=== PATIENT | female | born 1970 | race African-American/Black ===

== ENCOUNTER 2022-04-03 10:01 | Outpatient (CLI) | payer OTHER, SELFPAY ==
--- NOTE | ~2022-04-03 | XR_ITS ---
XR hand BI arthritis min 3V DATE: 04/03/2022 11:31 INDICATION: Osteoarthritis TECHNIQUE: 4 views of each hand COMPARISON: None FINDINGS: No fracture or dislocation, periosteal reaction or bone destruction, erosive change or lakia drocalcinosis of either hand is detected. Joint spaces are preserved. IMPRESSION: No significant abnormality Reviewed, dictated and finalized at location B. ZINE EDITOR IMPRESSION: No significant abnormality
--- NOTE | ~2022-04-03 | XR_ITS ---
XR foot LT standing 2V DATE: 04/03/2022 11:30 INDICATION: Osteoarthritis TECHNIQUE: Standing AP and lateral views COMPARISON: None FINDINGS: There is a lag screw extending posteroanteriorly in the calcaneus. There is hallux valgus and bunion deformity. There is severe osteoarthritis and prominent periarticular spurring at the first metatarsophalangeal joint. No erosive change is noted. Mild plantar calcaneal enthesopathy. Slight posterior calcaneal enthesopathy. Benign-appearing cystic or postoperative changes of medial aspect of navicular bone. Pes planus. 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 [employer]
--- NOTE | ~2022-04-03 | XR_ITS ---
XR lumbar spine 2-3V DATE: 04/03/2022 11:31 INDICATION: Back pain TECHNIQUE: AP, lateral, coned lateral lumbosacral views COMPARISON: None FINDINGS: Normal alignment of the lumbar spine with the exception of grade 1 anterolisthesis at L4-5 due to degenerative change at the apophyseal joints. There is moderate degenerative disc disease in the lower thoracic spine at L1-2 and L4-5. Mild degenerative disease at L2-3. Moderately severe degenerative disease at L5-S1. The T12-L5 pedicles are intact. No fracture or bone destruction is detected. The sacral iliac joints are intact. Right hip arthroplasty. Status post cholecystectomy. Radiopaque sutures overlie the left upper quadrant of the abdomen. IMPRESSION: Multilevel degenerative disc disease, most prominent at L5-S1 Degenerative change at the facet joints with associated grade 1 anterolisthesis at L4-5 Right hip arthroplasty Status post cholecystectomy Postoperative change, left upper quadrant Reviewed, dictated and finalized at location B. [employer] AFFAIRS DIRECTOR
--- NOTE | ~2022-04-03 | XR_ITS ---
XR foot RT standing 2V DATE: 04/03/2022 11:30 INDICATION: Osteoarthritis TECHNIQUE: Standing AP and lateral views COMPARISON: None FINDINGS: Slight plantar calcaneal enthesopathy. No fracture or dislocation, periosteal reaction or bone destruction or erosive change. IMPRESSION: Slight plantar calcaneal enthesopathy Reviewed, dictated and finalized at location B. GRATED CIRCUIT DESIGN ENGINEER
--- NOTE | ~2022-04-03 | XR_ITS ---
XR hip BI wo pelvis DATE: 04/03/2022 11:31 INDICATION: Hip pain. Osteoarthritis. TECHNIQUE: AP and lateral views of each hip. COMPARISON: None FINDINGS: Status post right hip arthroplasty. No fracture or dislocation of the right hip. No periost eal reaction or bone destruction. No apparent loosening of the prosthetic device is detected. No fracture or dislocation, avascular necrosis or bone destruction of the left hip. Mild left hip ost eoarthritis. Normal alignment at the pubic symphysis and sacroiliac joints. Degenerative disc disease at L5-S1. IMPRESSION: Right hip arthroplasty Mild left hip osteoarthritis Reviewed, dictated and finalized at location B. ER DIETARY SERVICE MANAGER
[2022-04-03 10:56] LABS: Hematocrit 35.2 % (37.0-47.0); Mean Corpuscular HGB Conc 31.3 g/dl (32-36); Mean Corpuscular Hemoglobin 26.7 pg (26-34); Mean Corpuscular Volume 85.4 fl (80-100); Mean Platelet Volume 9.9 fl (7.4-10.4); Platelet Count Result 235 k/mm3 (150-375); Red Blood Count 4.12 M/mm3 (4.2-5.4); Red Cell Distribution Width 15.4 % (11.5-14.5); White Blood Count 4.2 K/mm3 (4.5-10.0)
[2022-04-03 11:12] LABS: Alanine Aminotransferase 25 U/L (6-35); Albumin Level 3.9 g/dL (3.5-5.1); Alkaline Phosphatase 54 U/L (38-126); Anion Gap 9 mmol/L (8-16); Aspartate Amino Transferase 24 U/L (14-36); Bilirubin,Total 0.3 mg/dL (0.2-1.3); Blood Urea Nitrogen 10 mg/dL (7-17); CRP < 0.5 mg/dL (<1.0); Calcium 8.4 mg/dL (8.4-10.2); Carbon Dioxide 29 mmol/L (22-30); Chloride 102 mmol/L (98-107); Estimated Glomerular Filt Rate > 60; Glucose 110 mg/dL (65-110); Potassium 3.7 mmol/L (3.4-5.0); Sodium 140 mmol/L (137-145)
[2022-04-03 11:40] LABS: Thyroid Stimulating Hormone 0.667 uIU/mL (0.465-4.680)
[2022-04-03 11:53] LABS: Vitamin D 25 Hydroxy < 12.8 ng/mL
[2022-04-03 12:19] LABS: Erythrocyte Sedimentation Rate 40 mm/hr (0-20)
[2022-04-03 18:41] LABS: Rheumatoid Factor 45.2 IU/ML (<12)
[2022-04-05 11:46] LABS: Anti Cyclic Citrullinated Pept 23 Units (<20)
[2022-04-07 03:42] LABS: Angiotensin Converting Enzyme 32 U/L (9-67)
== END 2022-04-03 10:02 | disposition home or self-care (01) ==
PROVIDERS: PCP Internal Medicine Gastroenterology; Visit Provider Internal Medicine
DX: M51.36 Other intervertebral disc degeneration, lumbar region (principal); M19.072 Primary osteoarthritis, left ankle and foot; M77.32 Calcaneal spur, left foot; M20.12 Hallux valgus (acquired), left foot; M21.612 Bunion of left foot; M16.12 Unilateral primary osteoarthritis, left hip; Z71.89 Other specified counseling; Z79.899 Other long term (current) drug therapy; Z96.641 Presence of right artificial hip joint
CPT/HCPCS: 36415; 72100; 73130; 73521; 73620; 80053; 82164; 82306; 84443; 85027; 85652; 86038; 86140; 86200; 86430